=== PATIENT | female | born 1950 | race Caucasian/White ===

== ENCOUNTER 2023-11-10 10:54 | Emergency (ER) | payer MEDICARE ==
[2023-11-10 11:11] VITALS: RESP 18; TEMP 98.7
[2023-11-10 11:34] LABS: Group A Strep NOT DETECTED (NEGATIVE)
[2023-11-10 11:48] LABS: INFLUENZA A NEGATIVE (NEGATIVE); INFLUENZA B NEGATIVE (NEGATIVE); RESPIRATORY SYNCTIAL VIRUS NEGATIVE (NEGATIVE)
[2023-11-10] MEDS ORDERED: NORCO 10-325 MG PO STA (11:55)
[2023-11-10] MEDS ORDERED: Decadron 4 MG PO STA (11:55)
[2023-11-10 12:02] VITALS: O2SAT 97
[2023-11-10 12:03] LABS: SARS-CoV-2 Xpert Express POSITIVE (NEGATIVE)
[2023-11-10] MEDS ORDERED: NORCO 10-325 MG ONE (12:03)
[2023-11-10] MEDS ORDERED: Decadron 4 MG INJ ONE (12:03)
[2023-11-10 13:05] VITALS: BP 137/58; PULSE 80
--- NOTE | 2023-11-10 13:17 | ERPHSYRPT ---
- History of Present Illness Time Seen by Provider: 11/10/23 11:27 Source: patient Exam Limitations: no limitations Patient Subjective Stated Complaint: C/O sorethroat since yesterday Triage Nursing Assessment: Patient ambulated back to ER. She is alert and oriented. No cough. No SOB. PARADA WNL. Skin tone normal. Throat is red. Clear nasal drainage present. Physician History: 72 years old female presented in the ER with chief complaint of sore throat since yesterday with progressive worsening. Patient reports moderate intensity sharp pain with swallowing especially solids. No difficulty breathing. No cough fever or chills reported. Denies any known sick contact. Minimal sinus/nasal congestion. No abdominal pain nausea vomiting or diarrhea. Timing/Duration: gradual onset, yesterday Severity: moderate ENT Location: throat Prearrival Treatment: over the counter meds Associated Symptoms: poor solids intake, sore throat, difficulty swallowing, No cough, No fever Allergies/Adverse Reactions: azithromycin Allergy (Verified 11/10/23 11:02) Home Medications: Carvedilol [Coreg ] 1 tab PO BID 11/10/23 [History] Hydrochlorothiazide 25 mg [hydroDIURIL 25 MG] 1 tab PO DAILY 11/10/23 [History] Levothyroxine Sodium 150 Mcg [Synthroid 150 Mcg] 1 tab PO DAILY 11/10/23 [History] Hx Tetanus, Diphtheria Vaccination/Date Given: Yes Hx Influenza Vaccination/Date Given: Yes Hx Pneumococcal Vaccination/Date Given: Yes Immunizations Up to Date: Yes Travel Risk - International Travel Have you traveled outside of the country in past 3 weeks: No - Coronavirus Screening Are you exhibiting any of the following symptoms?: Yes Symptoms: Headaches/Body Aches/Fatigue Close contact with a COVID-19 positive Pt in past 14-21 Days: No - Vaccine Status Have you recieved a Covid-19 vaccination: Yes 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: [employer] Constitutional: No Symptoms Eyes: No Symptoms Ears, Nose, & Throat: Nose Congestion, Throat Pain, Throat Swelling, Painful Swallowing Respiratory: No Symptoms Cardiac: No Symptoms Abdominal/Gastrointestinal: No Symptoms Genitourinary Symptoms: No Symptoms Musculoskeletal: Myalgias Skin: No Symptoms Neurological: No Symptoms Psychological: No Symptoms - Past Medical History Pertinent Past Medical History: Yes Cardiac History: Hypertension Endocrine Medical History: Hypothyroidism Musculoskeletal History: Fractures History: Renal Disease - Past Surgical History Past Surgical History: Yes Female Surgical History: Tubal Ligation Other Surgical History: shoulder surgery - Social History Smoking Status: Never smoker Exposure to second hand smoke: No Drug Use: none Patient Lives Alone: No - Nursing Vital Signs Nursing Vital Signs: Initial Vital Signs Blood Pressure 184/77 11/10/23 11:02 O2 Sat by Pulse Oximetry 97 11/10/23 11:02 Pain Scale Pain Intensity 0 - Physical Exam General Appearance: no apparent distress, alert Eye Exam: bilateral eye: normal inspection, PERRL, EOMI Ear Exam: bilateral ear: auricle normal, canal normal, TM normal Nasal Exam: No sinus tenderness Throat Exam: moist mucus membranes, pharynx swelling, pharynx tenderness, uvula swelling, No tongue swollen Neck Exam: normal inspection, non-tender, supple, full range of motion Cardiovascular/Respiratory Exam: normal breath sounds, regular rate/rhythm Abdominal Exam: non-tender, soft Neurologic Exam: alert, oriented x 3, cooperative, application tester II-XII nml as tested, normal mood/affect Skin Exam: normal color SpO2 Interpretation: normal SpO2: 97 O2 Delivery: Room Air Ordered Tests: Medication Summary Discontinued Medications Generic Name Dose Route Start Last Admin Trade Name Marjan PRN Reason Stop Dose Admin Hydrocodone Bitart/Acetaminophen 1 tablet 11/10/23 11:55 11/10/23 12:07 Hydrocodone/Acetamin 10-325 Mg Tablet PO 11/10/23 11:56 1 tablet ONCE STA Administration Hydrocodone Bitart/Acetaminophen Confirm 11/10/23 12:03 Hydrocodone/Acetamin 10-325 Mg Tablet Administered 11/10/23 12:04 Dose 1 tablet .ROUTE .STK-MED ONE Dexamethasone 12 mg 11/10/23 11:55 11/10/23 12:29 Dexamethasone 4 Mg Tablet PO 11/10/23 11:56 12 mg ONCE STA Administration Dexamethasone Sodium Phosphate Confirm 11/10/23 12:03 Dexamethasone Sod Phosphate 4 Mg/Ml Ml Administered 11/10/23 12:04 Dose 12 mg .ROUTE .STK-MED ONE Lab/Rad Data: Laboratory Results 11/10/23 Range/Units 11:00 Influenza Type A Ag NEGATIVE (NEGATIVE) Influenza Type B Ag NEGATIVE (NEGATIVE) RSV (PCR) NEGATIVE (NEGATIVE) SARS-CoV-2 (PCR) POSITIVE A (NEGATIVE) Group A Strep Antibody NOT DETECTED (NEGATIVE) - Progress Progress: improved Progress Note: 11/10/23 13:15 72 years old is evaluated in the ER for sore throat since yesterday with difficulty swallowing solids. She has no difficulty breathing. Lungs bilateral clear to auscultation. No sinus tenderness. She has diffuse erythema of pharynx with swelling of uvula as well. She is given symptomatic treatment for pain with [place] and a dose of oral steroid Decadron, on reevaluation she is feeling much better. I have obtained COVID flu RSV and strep which is positive for COVID-19. I have discussed with patient about Paxlovid, reviewed risk and benefits and she declined. She wants to continue with steroids and I will give her a short course of steroid which I believe will help her decrease the inflammation. Recommended supportive care and outpatient follow-up. Discussed signs symptoms of worsening needing return to ER which she seems understanding. Stable for discharge. Counseled pt/family regarding: lab results, diagnosis, need for follow-up Medical Desision Making - Independent Historian Additional History obtained from: Spouse - Diagnostic Testing Diagnostic test were ordered, analyzed, and reviewed by me: Yes - Risk of complications The pt has a mod risk of morbidity or mortality based on: Need for prescription drug management - Departure Departure Disposition: Home Clinical Impression: Acute viral pharyngitis, COVID-19 virus detected Condition: Stable Critical Care Time: No Referrals: LUIS KIM MD [Primary Care Provider] - Follow up with PCP 2 days Instructions: Viral Pharyngitis (DC), COVID-19 (DC) Additional Instructions: Take Tylenol as needed. Follow-up with primary care for reevaluation. Return to ER for difficulty swallowing/breathing/persistent fever, decreased oral intake or if having swelling of tongue/floor of mouth etc. Prescriptions: Dexamethasone 4 mg [Decadron 4 MG] 6 mg PO DAILY 5 Days #8 tablet
== END 2023-11-10 13:35 | disposition home or self-care (01) ==
LOC: ED 10:54
DX: J02.9 Acute pharyngitis, unspecified (principal); U07.1 COVID-19; I10 Essential (primary) hypertension; Z79.52 Long term (current) use of systemic steroids; Z79.899 Other long term (current) drug therapy
CPT/HCPCS: 0241U; 87651; 99283; J1100; A9270-GY